=== PATIENT | male | born 1975 | race African-American/Black ===

== ENCOUNTER 2021-01-07 17:51 | Inpatient (IN) | payer SELFPAY ==
[~2021-01-07] VITALS: Ht 185.4 cm; Wt 125.0 kg
[2021-01-07] MEDS ORDERED: KETOROLAC 30 MG/ML 1ML VIAL IV ONE (18:45)
[2021-01-07] MEDS ORDERED: ONDANSETRON 4MG/2ML VIAL IV ONE ×2 (18:45→21:35)
[2021-01-07] MEDS ORDERED: NS 1,000 ML IV SCH (18:45)
[2021-01-07 19:13] LABS: BASO % 0.3 % (0.0-1.0); EOS % 0.3 % (0.0-3.0); HEMATOCRIT 43.9 % (42.0-52.0); HEMOGLOBIN 14.8 g/dl (13.5-17.5); LYMPH # 0.6 10^3/uL (1.5-5.0); LYMPH % 5.6 % (24.0-44.0); MEAN CORPUSCULAR HEMOGLOBIN 31.3 pg (27.0-33.0); MEAN CORPUSCULAR HGB CONC 33.7 g/dl (32.0-36.5); MEAN CORPUSCULAR VOLUME 92.8 fl (80.0-96.0); MONO # 0.7 10^3/uL (0.0-0.8); MONO % 6.4 % (2.0-8.0); NEUTROPHILS # 9.1 10^3/uL (1.5-8.5); NEUTROPHILS % 87.2 % (36.0-66.0); PLATELET COUNT, AUTOMATED 275 10^3/uL (150-450); RED BLOOD COUNT 4.73 10^6/uL (4.30-6.10); WHITE BLOOD COUNT 10.5 10^3/uL (4.0-10.0)
--- NOTE | 2021-01-07 19:29 | REP ---
INDICATION: r/o bowel obstruction COMPARISON: None. TECHNIQUE: Upright view of the chest with supine and upright views of the abdomen and pelvis. FINDINGS: Frontal upright view of the chest demonstrates subtle left basilar atelectasis without free air below the diaphragm to suspect pneumoperitoneum. Supine and upright views of the abdomen and pelvis demonstrate nonspecific bowel gas pattern without obstruction or perforation. No organomegaly. No abnormal calcifications. Skeletal structures normal for age. IMPRESSION: Nonspecific bowel gas pattern. Subtle left basilar atelectasis. <Electronically signed by Roberto Partida > 01/07/211924
--- NOTE | 2021-01-07 19:33 | REP ---
INDICATION: r/o bowel obstruction COMPARISON: None. TECHNIQUE: Lateral view of the chest (along with frontal view of the chest in the abdominal series) FINDINGS: The mediastinum and cardiac silhouette are within normal limits. The lung sommers demonstrate small amount of left lower lobe atelectasis. No effusion. No pneumothorax. Skeletal structures are intact. IMPRESSION: Trace left lower lobe atelectasis. <Electronically signed by Roberto Partida > 01/07/211928
[2021-01-07 19:56] LABS: ALBUMIN 3.3 GM/DL (3.2-5.2); ALT/SGPT 920 U/L (12-78); BILIRUBIN,DIRECT 4.5 MG/DL (0.0-0.2); BILIRUBIN,TOTAL 7.1 MG/DL (0.2-1.0); CPK CREATINE PHOSPHOKINASE 256 U/L (39-308); LIPASE 102 U/L (73-393)
--- NOTE | 2021-01-07 20:13 | REPVR ---
PROCEDURE INFORMATION: Exam: CT Abdomen And Pelvis Without Contrast Exam date and time: 01/07/2021 7:02 PM Age: 45 years old Clinical indication: Abdominal pain; Localized; Right upper quadrant (ruq); Additional info: Ruq pain R/O urolithiasis TECHNIQUE: Imaging protocol: Computed tomography of the abdomen and pelvis without contrast. Radiation optimization: All CT scans at this facility use at least one of these dose optimization techniques: automated exposure control; mA and/or kV adjustment per patient size (includes targeted exams where dose is matched to clinical indication); or iterative reconstruction. COMPARISON: No relevant prior studies available. FINDINGS: Lungs: Atelectasis is present in the dependent portions of the lungs. Liver: Noncontrast liver shows no obvious lesion. Gallbladder and bile ducts: Gallbladder is distended and contains small dependent stones. I cannot assess gallbladder wall thickening. Common bile duct is prominent in caliber measuring up to 10 mm proximally. Pancreas: Noncontrast pancreas shows no obvious mass or adjacent fluid. Spleen: Noncontrast spleen shows no obvious focal deformity. Adrenal glands: Adrenal glands are normal in appearance. Kidneys and ureters: Kidneys show no stone or hydronephrosis. Stomach and bowel: Limited evaluation without enteric or IV contrast. No evidence of small bowel obstruction. Terminal ileum has normal appearance. No evidence of acute diverticulitis. Postsurgical changes of gastric bypass procedure are present. Appendix: Normal caliber appendix is identified, with no adjacent inflammation. Intraperitoneal space: No pneumoperitoneum. Vasculature: No aortic aneurysm. Lymph nodes: No enlarged lymph nodes. Urinary bladder: Urinary bladder appears normal. Reproductive: No overt enlargement of the prostate gland. Bones/joints: Bony structures are normal except for lumbar spine degenerative disc changes. Soft tissues: Unremarkable. IMPRESSION: 1. Cholelithiasis and gallbladder distension. I cannot assess gallbladder wall thickness and HIDA scan or right upper quadrant sonography could be performed if there is concern for cholecystitis. Common bile duct proximally appears prominent but difficult to assess. 2. No evidence of urolithiasis Electronically signed by: Jesse James On 01/07/2021 20:13:06 PM
--- NOTE | 2021-01-07 20:36 | REP ---
INDICATION: ruq pain COMPARISON: None. TECHNIQUE: Real time gold scale ultrasound examination using curved array transducer. FINDINGS: Liver demonstrates mild fatty infiltration without focal hepatic lesion. Pancreas is incompletely evaluated due to interposed bowel gas. The gallbladder demonstrates layering sludge and gallstones without wall thickening or pericholecystic fluid. Common bile duct is dilated to 10.8 mm without obvious choledocholith. Right kidney is normal in reniform shape without hydronephrosis and measures 11.6 x 5.5 x 4.9 cm. No ascites in the visualized right upper quadrant. IMPRESSION: 1. Moderately prominent gallbladder with gallstones and layering sludge along with distended common bile duct raise the possibility of early acute cholecystitis and possible choledocholith. 2. Hepatosteatosis. <Electronically signed by Roberto Partida > 01/07/212031
[2021-01-07] MEDS ORDERED: LR 1,000 ML IV ONE (21:05)
--- NOTE | 2021-01-07 21:27 | IPNPDOC ---
Text Note Date of Service The patient was seen on 01/07/21. VS,Massimo, I+O VS, Massimo, I+O Laboratory Tests 01/07/21 18:54 Vital Signs Date Time Temp Pulse Resp B/P (MAP) Pulse Ox O2 Delivery O2 Flow Rate FiO2 01/07/21 21:13 98.9 72 16 165/83 (110) 100 Room Air KRIS MENDOZA MD Jan 07, 2021 21:27
[2021-01-07] MEDS ORDERED: HOME MED LIST COMPLETE! XX SCH (21:30)
[2021-01-07] MEDS: LR 1,000 ML IV SCH (21:30)
[2021-01-07] MEDS ORDERED: MORPHINE 4 MG/ML 1ML VIAL/SYRINGE (J2270) IV ONE (21:35)
[2021-01-07 22:02] LABS: HEPATITIS B SURFACE ANTIGEN NEGATIVE (NEGATIVE)
--- NOTE | 2021-01-07 22:08 | HPEPDOC ---
[facility] Medical History & Physical Date of Admission Jan 07, 2021 Date of Service: Jan 07, 2021 Attending Physician: KRIS MENDOZA MD History and Physical CHIEF COMPLAINT: Abdominal pain and vomiting HISTORY OF PRESENT ILLNESS: is a pleasant 45yo male with PMHx notable only for gastric bypass sx (2011) who presented to the [facility] ED on the evening of 01/07/21 via EMS c/o worsening abdominal pain and emesis. On the morning of 01/05, the patient woke up and had a meal replacement protein shake for breakfast, after which he subsequently developed abdominal pain. Initially, the pain began over the entire right side of his abdomen and radiated to his back. The pain steadily worsened over the next 48 hours, then this morning (01/07) he experienced 2 episodes of blood-tinged emesis. The patient specifically described the vomitus as being "white, cottage cheeselike" with streaks of blood. Patient then tried some davide adriana, but this brought no relief as he subsequently experienced 2 more episodes of emesis - -describing the vomitus this time as "more bloody then white." Around 3 PM this afternoon, the patient's abdominal pain had significantly increased in intensity to 10/10, and become more localized to the right upper quadrant. He described the pain at this point as being "cons trictive," in that lying completely flat caused him the least discomfort. He reports not having a bowel movement since Thursday (01/04), and has not been able to either burp or pass gas. He has diminished appetite and has not eaten anything of significance since Thursday, 01/04. He also reported accompanying bloating-like sensation of his upper chest, "as if there were bubbles," as well as shortness of breath with presyncopal sxs (lightheadedness & transient visual field disturbances). 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 After struggling to find a nearby hospital, he pulled into a shopping center lot and subsequently called EMS. On presentation in the ED, patient had a mild leukocytosis with absolute neutrophilia (WBC 10.5), significantly elevated transaminases (ALT 920, AST 622)/elevated alk phos (146)/direct hyperbilirubinemia (T bili 7.1, D bili 4.5). CT abdomen and pelvis showed cholelithiasis and gallbladder distention with difficulty assessing gallbladder wall thickness. On right upper quadrant ultrasound, gallbladder was described as mildly prominent with stones and layering sludge along with distended CBD with associated increased possibility of early acute cholecystitis and possible choledocholithiasis. Patient was also found to have a fatty liver. ED provider contacted the on-call gastroente rologist (Dr. Stockton) who recommended n.p.o. overnight in preparation for likely ERCP tomorrow, serial repeats of liver enzymes, hepatitis panel, and aggressive fluid hydration. REVIEW OF SYSTEMS: CONSTITUTIONAL: Reports subjective fever earlier today. Denies chills, night sweats, recent unintentional change in weight HEENT: Reports lightheadedness and transient visual disturbances earlier today accompanying shortness of breath (described as color flashes in his field of vision). CARDIOVASCULAR: Reports some bloating-like sensation of his upper chest but denies any sharp chest pain or palpitations currently. RESPIRATORY: Reports some transient shortness of breath earlier today but does not feel short of breath now. He also denies any pleuritic chest pain or cough. GASTROINTESTINAL: Reports significant abdominal pain over the past 3 days that is worsened today as described extensively in HPI. Also reports nausea and multiple episodes of emesis today as described in HPI with some accompanying hematemesis. Last bowel movement was 01/04, but denies any recent blood in stool. Denies any recent eructation or flatus. Reports diminished appetite and has not eaten anything since 01/04. GENITOURINARY: Reports dark-colored urine over the past few days. Denies dysuria or hematuria Musculoskeletal: Reports some flank/costo vertebral discomfort. Denies any low back pain. NEUROLOGICAL: Reports lightheadedness earlier today HEMATOLOGIC: Denies any recent easy bleeding or bruising LYMPHATIC: Denies any recent new lumps or bumps of his axilla, inguinal region, or neck, but does report a bump over his buttocks. 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 He is engaged and has 1 son. Patient currently smokes 2 to 3 cigars daily and has smoked for the past 3 years. He denies any chewing tobacco or cigarette use. Patient drinks alcohol occasionally on a social basis (estimates approximately 12 drinks per month). Patient denies any current or former illegal or IV drug use FAMILY HISTORY: Mother: Unspecified cancer / Father: ; hypertension ALLERGIES: Please see below. HOME MEDICATIONS: Please see below. PHYSICAL EXAMINATION: Vital Signs Date Time Temp Pulse Resp B/P (MAP) Pulse Ox O2 Delivery O2 Flow Rate FiO2 01/07/21 18:31 97.9 65 18 180/91 (120) 100 Room Air GENERAL APPEARANCE: lying completely flat in bed appearing in moderate discomfort. HEENT: Normocephalic, atraumatic. Mildly injected sclera with trace icterus. PERRLA. EOMI. Oral cavity: Mallampati 4. No pharyngeal erythema or exudate appreciated. Mildly dry mucous membranes. Neck: No lymphadenopathy appreciated. Trachea midline. CARDIOVASCULAR: Regular rate, regular rhythm. Normal S1 with a possible split S2 most prominent over parasternal fourth intercostal space. No significant murmurs or rubs are appreciated. LUNGS: Diminished tidal volume likely secondary to active discomfort with no adventitious breath sounds appreciated. Symmetric chest expansion. Breathing room air and speaking full sentences. ABDOMEN: Soft. Significant pain on palpation of the upper abdominal regions as well as the left lower quadrant, with diffuse tenderness in right lower quadrant and periumbilically. There is no rigidity but there is moderate guarding throughout. Hyperactive bowel sounds with occasional intermittent high-pitched tinkling sounds in the upper quadrants. Positive Cardenas sign and positive Carnett's sign. Difficult to assess for hepatosplenomegaly and palpable masses due to patient's discomfort. No CVA tenderness. There are some prominent unprofessional tattoos overlying the right side of his abdomen. EXTREMITIES: Bilateral lower extremities are free of pitting edema. His feet are quite cool to the touch bilaterally. 2+ radial, dorsalis pedis, and po sterior tibial pulses bilaterally. No signs of clubbing or cyanosis. NEUROLOGICAL: No gross focal neurologic deficits appreciated. Nondysarthric speech. PSYCHIATRIC: Pleasant mood and appropriate appearing affect. LABORATORY DATA:01/07/21 18:54 IMAGING: CT abdomen and pelvis without IV contrast, 01/07/2021 FINDINGS: Lungs: Atelectasis is present in the dependent portions of the lungs. Liver: Noncontrast liver shows no obvious lesion. Gallbladder and bile ducts: Gallbl adder is distended and contains small dependent stones. I cannot assess gallbladder wall thickening. Common bile duct is prominent in caliber measuring up to 10 mm proximally. Pancreas: Noncontrast pancreas shows no obvious mass or adjacent fluid. Spleen: Noncontrast spleen shows no obvious focal deformity. Adrenal glands: Adrenal glands are normal in appearance. Kidneys and ureters: Kidneys show no stone or hydronephrosis. Stomach and bowel: Limited evaluation without enteric or IV contrast. No evidence of small bowel obstruction. Terminal ileum has normal appearance. No evidence of acute diverticulitis. Postsurgical changes of gastric bypass procedure are present. Appendix: Normal caliber appendix is identified, with no adjacent inflammation. Intraperitoneal space: No pneumoperitoneum. Vasculature: No aortic aneurysm. Lymph nodes: No enlarged lymph nodes. Urinary bladder: Urinary bladder appears normal. Reproductive: No overt enlargement of the prostate gland. Bones/joints: Bony structures are normal except for lumbar spine degenerative disc changes. Soft tissues: Unremarkable. IMPRESSION: 1. Cholelithiasis and gallbladder distension. I cannot assess gallbladder wall thickness and HIDA scan or right upper quadrant sonography could be performed if there is concern for cholecystitis. Common bile duct proximally appears prominent but difficult to assess. 2. No evidence of urol ithiasis Gallbladder ultrasound, 01/07/2021FINDINGS:Liver demonstrates mild fatty infiltration without focal hepatic lesion. Pancreas is incompletely evaluated due to interposed bowel gas.The gallbladder demonstrates layering sludge and gallstones without wall thickening or pericholecystic fluid. Common bile duct is dilated to 10.8 mm without obvious choledocholith. Right kidney is normal in reniform shape without hydronephrosis and measures 11.6 x 5.5 x 4.9 cm. No ascites in the visualized right upper quadrant. IMPRESSION: 1. Moderately prominent gallbladder with gallstones and layering sludge along with distended common bile duct raise the possibility of early acute cholecystitis and possible choledocholith. 2. Hepatosteatosis. Abdominal x-ray, 01/07/2021 FINDINGS: Frontal upright view of the chest demonstrates subtle left basilar atelectasis without free air below the diaphrag m to suspect pneumoperitoneum. Supine and upright views of the abdomen and pelvis demonstrate nonspecific bowel gas pattern without obstruction or perforation. No organomegaly. No abnormal calcifications. Skeletal structures normal for age. IMPRESSION: Nonspecific bowel gas pattern. Subtle left basilar atelectasis. Portable chest x-ray, 01/07/2021 FINDINGS:The mediastinum and cardiac silho uette are within normal limits. The lung sommers demonstrate small amount of left lower lobe atelectasis. No effusion. No pneumothorax. Skeletal structures are intact. IMPRESSION: Trace left lower lobe atelectasis. MICROBIOLOGY: Please see below. ASSESSMENT & PLAN: This is a 45yo male s/p gastric bypass who presented to the ED on the evening of 01/07 with cc of abdominal pain worsening over the past 3 days. He had accompanying blood tinged emesis x4 on 01/07 with decreased appetite, no flatus or eructation. Initial labs showed mild leukocytosis with significantly elevated liver enzymes and direct hyperbilirubinemia. Imaging showed cholelithiasis with prominent gallbladder and distended CBD concerning for choledocholithiasis and early cholecystitis, as well as fatty liver. Patient made n.p.o. with aggressive IV fluid hydration, antibiotics, pain and nausea control, with plan for upcoming ERCP with gastroenterology on 01/08/2021. #Abdominal pain and hematemesis- likely 2/2 cholelithiasis with possibility for early cholecystitis and choledocholithiasis -Patient has had abdominal pain over the last 3 days which is worsened and is now most intense over the right upper quadrant. Experienced 4 episodes of blood-tinged emesis on 01/07 -Mild leukocytosis with significantly elevated liver enzymes and direct hyperbilirubinemia; imaging showed prominent gallbladder with gallstones, dilated CBD, and concerns for possible early acute cholecystitis and choledocholithiasis -tBili 7.1, dBili 4.5; ALT 920, AST 622, GGT 319, Alk Phos 146; Coags ordered; PLT 275; Lipase 102 -Trending CMP at midnight and 6 AM -ED provider contacted gastroenterology (Dr. Stockton) who recommended aggressive IV fluid hydration and n.p.o. diet in preparation for likely ERCP on 01/08 -Official gastroenterology consultation has been placed -Aggressive IV fluid hydration in the form of lactated Ringer's (rate 250 cc/hour) -Zosyn initiated for antimicrobial coverage -As needed morphine and Zofran ordered (patient's QTc was in low-to-mid 400s) -Calculated R Factor: 9.5, which correlates to a hepatocellular pattern; imaging suggests cholestatic pattern -Pt also has hepatic steatosis per imaging, which would correlate to hepatocellular -Hepatitis panel, anti-smooth muscle Ab, and anti-mitoch Ab ordered #Direct hyperbilirubinemia -most likely secondary to cholelithiasis with possible choledocholithiasis and early -Initial total bilirubin 7.1, direct bilirubin 4.5 -Trending CMP at midnight and 6 AM #Transaminitis -most likely secondary to acute cholestatic imaging findings as well as fatty liver -ALT 920, AST 622 -Repeat CMP at midnight and 6 AM #Possible acute renal failure -Initial serum creatinine of 1.4 -Initial calculated GFR greater than 60% -Patient is not from the area and therefore no previous measurements are available to assess for baseline creatinine -Repeat CMP's have been ordered in the setting of acute cholestatic pathology -Patient receiving aggressive IV fluid hydration in the form of LR #Recent hematemesis -Patient reported 4 episodes earlier today of blood-tinged emesis -As needed Zofran has been ordered -Of note, patient's been hemodynamically stable with no tachycardia, Hgb 14.8 #Mild leukocytosis with absolute neutrophilia -Initial WBC 10.5 with elevated absolute neutrophil number -Initial lactic 1.1; 2 initial blood cultures taken; initial UA unremarkable for UTI #DVT prophylaxis: Teds and sequentials have been ordered in setting of upcoming ERCP CODE STATUS: Full code Social: Patient's ana (Emily Davis, ) is point of contact Disposition: Admit to medical surgical floor with n.p.o. status for likely upcoming ERCP on 01/08; pending clinical improvement Home Medications No Active Prescriptions or Reported Meds Allergies Coded Allergies: No Known Allergies (Verified Allergy, Unknown, 01/07/21) Attending Note Attending Note TIME OF SERVICE 11:30PM Mr. Grubbs is a 45 yr old M admitted for early acute cholecystitis w choledocholithiasis. - he is NPO w IVF pending ERCP in the morning that will be done by rest per 's H&P SHYLA LEVINEOCitlaly Jan 07, 2021 22:08 KRIS MENDOZA MD Jan 08, 2021 00:22
[2021-01-07 22:27] LABS: RSV AMPLIFICATION NEGATIVE (NEGATIVE)
[2021-01-07 22:29] LABS: HEPATITIS B CORE ANTIBODY IGM NEGATIVE (NEGATIVE); HEPATITIS C VIRUS ABY INDEX < 0.0 INDEX (<0.8)
[2021-01-07] MEDS ORDERED: MORPHINE 4 MG/ML 1ML VIAL/SYRINGE (J2270) IV PRN (23:40)
[2021-01-08] VITALS (10 sets, daily range): BP systolic 138–160; BP diastolic 78–88
[2021-01-08] MEDS ORDERED: fentaNYL 100 MCG/2 ML INJECTION (J3010) IV ONE (00:15)
[2021-01-08] MEDS ORDERED: ONDANSETRON 4MG/2ML VIAL IV PRN ×2 (01:30→15:15)
[2021-01-08] MEDS ORDERED: MORPHINE 10 MG/ML 1ML VIAL (J2270) IV PRN (01:35)
[2021-01-08] MEDS: PIPERACILLIN/TAZOBACTAM SOD 3.375 GM in D5W MINI-BAG PLUS 50 ML IV SCH ×4 (01:54→18:13)
[2021-01-08] MEDS: LR 1,000 ML IV SCH ×4 (03:50→23:32)
[2021-01-08 05:37] LABS: BASO % 0.5 % (0.0-1.0); EOS # 0.2 10^3/uL (0.0-0.5); EOS % 1.9 % (0.0-3.0); HEMATOCRIT 41.4 % (42.0-52.0); LYMPH # 1.5 10^3/uL (1.5-5.0); LYMPH % 18.7 % (24.0-44.0); MEAN CORPUSCULAR HEMOGLOBIN 31.5 pg (27.0-33.0); MEAN CORPUSCULAR HGB CONC 33.8 g/dl (32.0-36.5); MONO # 0.8 10^3/uL (0.0-0.8); MONO % 10.3 % (2.0-8.0); NEUTROPHILS # 5.3 10^3/uL (1.5-8.5); NEUTROPHILS % 68.3 % (36.0-66.0); PLATELET COUNT, AUTOMATED 241 10^3/uL (150-450); RED BLOOD COUNT 4.45 10^6/uL (4.30-6.10); WHITE BLOOD COUNT 7.8 10^3/uL (4.0-10.0)
[2021-01-08 06:04] LABS: ALBUMIN 2.8 GM/DL (3.2-5.2); ALT/SGPT 687 U/L (12-78); BILIRUBIN,TOTAL 7.4 MG/DL (0.2-1.0); BLOOD UREA NITROGEN 6 MG/DL (7-18); CALCIUM LEVEL 8.3 MG/DL (8.5-10.1); CARBON DIOXIDE LEVEL 31 MEQ/L (21-32); CHLORIDE LEVEL 109 MEQ/L (98-107); CREATININE FOR GFR 1.21 MG/DL (0.70-1.30); GLOMERULAR FILTRATION RATE > 60.0 (>60); GLUCOSE, FASTING 94 MG/DL (70-100); MAGNESIUM LEVEL 1.8 MG/DL (1.8-2.4); POTASSIUM SERUM 3.9 MEQ/L (3.5-5.1); SODIUM LEVEL 142 MEQ/L (136-145); TOTAL PROTEIN 5.7 GM/DL (6.4-8.2)
[2021-01-08] MEDS ORDERED: HYDROMORPHONE HCL 0.5 MG/ 0.5 ML SYRINGE (J1170 PER 1) IV ONE (08:35)
[2021-01-08] MEDS ORDERED: METOCLOPRAMIDE INJ 10MG/2ML VIAL (J2765 PER 1) IV ONE (08:35)
[2021-01-08 10:57] LABS: ALBUMIN 2.9 GM/DL (3.2-5.2); ALT/SGPT 654 U/L (12-78); BILIRUBIN,TOTAL 8.1 MG/DL (0.2-1.0); BLOOD UREA NITROGEN 7 MG/DL (7-18); CALCIUM LEVEL 8.7 MG/DL (8.5-10.1); CARBON DIOXIDE LEVEL 29 MEQ/L (21-32); CHLORIDE LEVEL 107 MEQ/L (98-107); CREATININE FOR GFR 1.35 MG/DL (0.70-1.30); GLOMERULAR FILTRATION RATE > 60.0 (>60); GLUCOSE, FASTING 88 MG/DL (70-100); POTASSIUM SERUM 3.9 MEQ/L (3.5-5.1); SODIUM LEVEL 141 MEQ/L (136-145)
[2021-01-08] MEDS ORDERED: dexameTHASONE 4 MG/ML 1ML VIAL (J1100 PER 1MG) As Ordered ONE (13:02)
[2021-01-08] MEDS ORDERED: fentaNYL 100 MCG/2 ML INJECTION (J3010) As Ordered ONE (13:02)
[2021-01-08] MEDS ORDERED: ROCURONIUM BROMIDE 50 MG/5 ML VIAL As Ordered ONE (13:02)
[2021-01-08] MEDS ORDERED: LIDOCAINE 2% 100MG/5ML SDV (FOR ANES.) As Ordered ONE (13:02)
[2021-01-08] MEDS ORDERED: MIDAZOLAM INJ 2MG/2ML VIAL (J2250 PER 1MG) As Ordered ONE (13:02)
[2021-01-08] MEDS ORDERED: propofoL 200 MG/20 ML VIAL As Ordered ONE ×2 (13:02→13:58)
[2021-01-08] MEDS ORDERED: ONDANSETRON 4MG/2ML VIAL As Ordered ONE (13:03)
[2021-01-08] MEDS ORDERED: ISOVUE-300 61% 50ML VIAL As Ordered ONE (13:31)
--- NOTE | 2021-01-08 13:44 | CR.PDOC ---
General Date of Consultation: Jan 08, 2021 Referring Provider: CONRAD ANDRADE MD Attending Physician: SARAH ZAVALA MD Consultation Referring physician / PCP : Polly ([place]). Reason for consult: Anemia and drop in hmeoglobin HPI: 45 year old male patient with prior gastric sleeve surgery in 2011 in [place], ( patient is specifically asked about the type of gastric surgery and he denies Naye-En- Y gastric bypass), was admitted to hospital for right sided abdominal pain associated with nausea and vomiting and some blood in vomiting. Patient was noted to have abnormal liver tests and GI was consulted for the same. Patient reports that the symptoms started on Thursday ( 4 days ago) with acute onset upper abdominal pain, that radiating to back and initially mild but rapidly worsened to 10/10 intensity and unable to lay flat on the bed. The pain is associated with nausea and vomiting total 4 episodes with last episode of vomiting yesterday with some blood in vomit. Patient desnies any recent NSAID use, and no black stools and his last bowel movement was on Thursday. 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 Pertinent negative GI symptoms: Patient denies diarrhea, loss of appetite, early satiety or unintentional weight loss, hematemesis, melena or hematochezia. Review of Systems: GI: as stated above CVS: No chest pain, No palpitations, No leg swelling RS: No Shortness of breath, No Wheezing LOCK SETTER: No loss of consciousness, No focal motor weakness., Hematology: No easy bruising, No gum bleeding, Musculoskeletal: No joint pain, ambulating well. : No blood in urine, No burning sensation of the urine ENT: No ear discharge/ pain, No dysphagia. Eyes: No photophobia. Skin: No rash Home medications: reviewed. No Plavix and No anticoagulants Medical h/o: As above. Surgical h/o: As above.. Social h/o: Smokes cigars and social alcohol use and denies any recent binge drinking. Denies IVDA/ drugs. Family h/o of GI cancers - None Prior Endoscopies: None in [facility]. No prior colonoscopy. Prior GI evaluation: None in [facility] Exam: Vitals: reviewed General: Alert and oriented x 3, Mild to moderate distress from epigastric pain. HEENT: No pallor, no icterus. Normal oropharynx, NO cervical lymphadenopathy. Chest: symmetric with bilateral air entry, CVS: S1, S2 heard, Abdomen: non-distended, soft, tenderness on deep palpation on the right side upper and lower quadrant. no rigidity or guarding, no palpable masses, normal bowel sounds heard. Rectal exam: Patient refused / Deferred at this time in view of scheduled colonoscopy. Extremities: pulses palpable, no pedal edema, LOCK SETTER: no focal motor or sensory deficits. Moves all extremities Skin: no rash. Labs: reviewed. Imaging: none / reviewed. Impression: -- Acute onset upper abdominal pain with jaundice and vomiting of blood after few episodes of retching and work up showing cholestasis, dilated CBD and prior gastric sleeve surgery DDxCholedocholithiasis without evidence of cholangitis at this time. Hematemsis likely from gastritis vs MWT.. Recommendations: -- Patient educated about the prior test results and all questions answered. . -- NPO for now. -- Continue IV hydration prefer ringers lactate. -- Will schedule for ERCP today. Patient educated about the procedure, indications, risks (including but not limited to pancreatitis and its complications, bleeding, infection, perforation, anesthesia risks, including ), benefits and all alternatives including conservative measures without intervention. Patient verbalized understanding and consented for the procedure(s). -- Please follow operative note for post procedure recommendations. -- Plan of care educated to patient and patient verbalized understanding and agreed. All questions answered. -- Recommendations communicated to primary team. Patient to follow with PCP upon discharge for routine medical care. Vital Signs/I&O Vital Signs Date Time Temp Pulse Resp B/P (MAP) Pulse Ox O2 Delivery O2 Flow Rate FiO2 01/08/21 09:30 18 01/08/21 08:53 Room Air 01/08/21 06:00 98.6 59 138/78 (98) 95 I&O- Last 24 Hours up to 6 AM 01/08/21 06:00 Intake Total 3050 ml Balance 3050 ml Laboratory Data Labs 24H Laboratory Tests 2 01/07/21 18:54: Immature Granulocyte % (Auto) 0.2, Neutrophils (%) (Auto) 87.2H, Lymphocytes (%) (Auto) 5.6L, Monocytes (%) (Auto) 6.4, Eosinophils (%) (Auto) 0.3, Basophils (%) (Auto) 0.3, Neutrophils # (Auto) 9.1H, Lymphocytes # (Auto) 0.6L, Monocytes # (Auto) 0.7, Eosinophils # (Auto) 0.0, Basophils # (Auto) 0.0, Nucleated Red Blood Cells % (auto) 0.0, Total Bilirubin 7.1H, Direct Bilirubin 4.5H, Gamma Glutamyl Transferase 319H, Aspartate Amino Transf (AST/SGOT) 622H, Alanine Aminotransferase (ALT/SGPT) 920H, Alkaline Phosphatase 146H, Total Creatine Kinase 256, Total Protein 7.0, Albumin 3.3, Albumin/Globulin Ratio 0.9, Lipase 102, Hepatitis A IgM Antibody NEGATIVE, Hepatitis B Surface Antigen NEGATIVE, Hepatitis B Core IgM Antibody NEGATIVE, Hepatitis C Antibody Index < 0.0 01/07/21 19:01: POC Glucose (Misc Panel) 117H, POC Sodium (Misc Panel) 139, POC Potassium (Misc Panel) 4.0, POC Chloride (Misc Panel) 102, POC Total CO2 (Misc Panel) 27.0, POC Blood Urea Nitrogen (Misc Panel 5L, POC Ionized Calcium (Misc Panel) 4.3L, POC Creatinine (Misc Panel) 1.4H, POC Hematocrit (Misc Panel) 48.0 01/07/21 20:29: Urine Color ALFONSO, Urine Appearance CLEAR, Urine pH 6.0, Urine Specific [place] 1.026, Urine Protein 1+H, Urine Glucose (UA) NEGATIVE, Urine Ketones TRACEH, Urine Blood NEGATIVE, Urine Nitrite NEGATIVE, Urine Bilirubin 2+H, Urine Urobilinogen 4.0H, Urine Leukocyte Esterase NEGATIVE, Urine WBC (Auto) 1, Urine RBC (Auto) 3, Urine Hyaline Casts (Auto) 0, Urine Bacteria (Auto) NEGATIVE, Urine Squamous Epithelial Cells 0, Urine Mucus (Auto) SMALL, Urine Sperm (Auto) 01/07/21 21:42: Coronavirus (COVID-19)(PCR) NEGATIVE, Influenza Type A (RT-PCR) NEGATIVE, Influenza Type B (RT-PCR) NEGATIVE, Respiratory Syncytial Virus (PCR) NEGATIVE 01/07/21 23:58: Lactic Acid Level 1.1 01/08/21 05:27: Immature Granulocyte % (Auto) 0.3, Neutrophils (%) (Auto) 68.3H, Lymphocytes (%) (Auto) 18.7L, Monocytes (%) (Auto) 10.3H, Eosinophils (%) (Auto) 1.9, Basophils (%) (Auto) 0.5, Neutrophils # (Auto) 5.3, Lymphocytes # (Auto) 1.5, Monocytes # (Auto) 0.8, Eosinophils # (Auto) 0.2, Basophils # (Auto) 0.0, Nucleated Red Blood Cells % (auto) 0.0, Anion Gap 2L, Glomerular Filtration Rate > 60.0, Calcium Level 8.3L, Magnesium Level 1.8, Total Bilirubin 7.4H, Aspartate Amino Transf (AST/SGOT) 328H, Alanine Aminotransferase (ALT/SGPT) 687H, Alkaline Phosphatase 123H, Lactate Dehydrogenase 262H, Total Protein 5.7L, Albumin 2.8L, Albumin/Globulin Ratio 1.0 01/08/21 10:12: Anion Gap 5L, Glomerular Filtration Rate > 60.0, Calcium Level 8.7, Total Bilirubin 8.1H, Aspartate Amino Transf (AST/SGOT) 266H, Alanine Aminotransferase (ALT/SGPT) 654H, Alkaline Phosphatase 128H, Total Protein 6.0L, Albumin 2.9L, Albumin/Globulin Ratio 0.9 CBC/BMP Laboratory Tests 01/07/21 18:54 01/08/21 05:27 01/08/21 10:12 Allergies Coded Allergies: No Known Allergies (Verified Allergy, Unknown, 01/07/21) Home Medications No Active Prescriptions or Reported Meds SARAH ZAVALA MD Jan 08, 2021 13:44
[2021-01-08] MEDS ORDERED: LABETALOL 100MG/20ML VIAL As Ordered ONE (14:06)
[2021-01-08] MEDS ORDERED: KETOROLAC 60MG 2ML VIAL As Ordered ONE (14:37)
[2021-01-08] MEDS ORDERED: SUGAMMADEX SODIUM 500 MG/5 ML VIAL (BRIDION) As Ordered ONE (14:37)
[2021-01-08] MEDS ORDERED: METOCLOPRAMIDE INJ 10MG/2ML VIAL (J2765 PER 1) As Ordered ONE (14:53)
--- NOTE | 2021-01-08 14:55 | ROOR ---
Patient Name: Luisito Grubbs Procedure Date: 01/08/2021 1:49 PM Date of : 1975 Age: 45 Room: Main OR Gender: Male Note Status: Finalized Procedure: ERCP Indications: Common bile duct stone(s), Evaluation and possible treatment of bile duct stone(s), Jaundice, Elevated liver enzymes Providers: Erwin Stockton MD Referring MD: 2. Inpatient 2. Inpatient, 1. NO/Unknown PCP 1. NO/Unknown PCP, Admin. Requesting Provider: Medicines: Monitored Anesthesia Care Complications: No immediate complications. Procedure: Pre-Anesthesia Assessment: - Prior to the procedure, a History and Physical was performed, and patient medications and allergies were reviewed. The patient is competent. The risks and benefits of the procedure and the sedation options and risks were discussed with the patient. All questions were answered and informed consent was obtained. Patient identification and proposed procedure were verified by the physician, the nurse and the anesthesiologist in the procedure room. Mental Status Examination: alert and oriented. Airway Examination: normal oropharyngeal airway and neck mobility. Respiratory Examination: clear to auscultation. CV Examination: normal. Prophylactic Antibiotics: The patient does not require prophylactic antibiotics. Prior Anticoagulants: The patient has taken no previous anticoagulant or antiplatelet agents except for aspirin. ASA Grade Assessment: II - A patient with mild systemic disease. After reviewing the risks and benefits, the patient was deemed in satisfactory condition to undergo the procedure. The anesthesia plan was to use general anesthesia. Immediately prior to administration of medications, the patient was re-assessed for adequacy to receive sedatives. The heart rate, respiratory rate, oxygen saturations, blood pressure, adequacy of pulmonary ventilation, and response to care were monitored throughout the procedure. The physical status of the patient was re-assessed after the procedure. The Endoscope was introduced through the mouth, and advanced to the duodenum and used to locate the major papilla. The Duodenoscope was introduced through the mouth, and advanced to the duodenum and used to inject contrast into the bile duct. The ERCP was accomplished without difficulty. The patient tolerated the procedure well. Findings: The information systems operator film was normal. The esophagus was successfully intubated under direct vision. The scope was advanced from the mouth to the duodenum. The pharynx, larynx and associated structures, as well as the upper GI tract, were normal. The major papilla was bulging. A 0.035 inch x 260 cm straight Hydra Jagwire was passed into the biliary tree. The short-nosed traction sphincterotome was passed over the guidewire and the bile duct was then deeply cannulated. Contrast was injected. I personally interpreted the bile duct images. Ductal flow of contrast was adequate. Image quality was adequate. Contrast extended to the entire biliary tree. The middle third of the main bile duct and upper third of the main bile duct were diffusely dilated, with a stone causing an obstruction. The largest diameter was 12 mm. The lower third of the main bile duct contained filling defect(s) thought to be a stone and sludge. Biliary sphincterotomy was made with a monofilament traction (standard) sphincterotome using ERBE electrocautery. The sphincterotomy oozed blood. The biliary tree was swept with a 12 mm balloon starting at the bifurcation. Sludge was swept from the duct. All stones were removed. Occlusion cholangiogram at the end of the procedure did not show any residual filling defects. Pancreatic duct was neither cannulated nor opacified. Impression: - The major papilla appeared to be bulging. - A filling defect consistent with a stone and sludge was seen on the cholangiogram. - The upper third of the main bile duct and middle third of the main bile duct were dilated, with a stone causing an obstruction. - Choledocholithiasis was found. Complete removal was accomplished by biliary sphincterotomy and balloon extraction. - A biliary sphincterotomy was performed. - The biliary tree was swept. Recommendation: - The patient will be observed post-procedure, until all discharge criteria are met. - Patient has a contact number available for emergencies. The signs and symptoms of potential delayed complications were discussed with the patient. Return to normal activities tomorrow. Written discharge instructions were provided to the patient. - Avoid aspirin and nonsteroidal anti-inflammatory medicines for 1 week. - Continue present medications. - Clear liquid diet today, then advance as tolerated to high fiber diet and low fat diet. - Surgical consultation for consideration of cholecystectomy at the next available appointment. - Refer to a surgeon today. - Telephone GI clinic if symptomatic. - Return to primary care physician. Procedure Code(s): --- Professional --- 52264, Endoscopic retrograde cholangiopancreatography (ERCP); with removal of calculi/debris from biliary/pancreatic duct(s) 20422, Endoscopic retrograde cholangiopancreatography (ERCP); with sphincterotomy/papillotomy 78329, 26, Endoscopic catheterization of the biliary ductal system, radiological supervision and interpretation Diagnosis Code(s): --- Professional --- K80.51, Calculus of bile duct without cholangitis or cholecystitis with obstruction R17, Unspecified jaundice R74.8, Abnormal levels of other serum enzymes K83.8, Other specified diseases of biliary tract R93.2, Abnormal findings on diagnostic imaging of liver and biliary tract CPT copyright 2019 [employer]. All rights reserved. The codes documented in this report are preliminary and upon academic advisor review may be revised to meet current compliance requirements. Erwin Stockton MD Erwin Stockton MD 01/08/2021 2:54:58 PM Electronically signed by Erwin Stockton MD Number of Addenda: 0 Note Initiated On: 01/08/2021 1:49 PM Estimated Blood Loss: Estimated blood loss was minimal.
--- NOTE | 2021-01-08 15:08 | REP ---
INDICATION: CHOLELITHIASIS. COMPARISON: None. TECHNIQUE: 38.2 seconds of fluoroscopy time was provided. 56 spot views were obtained. FINDINGS: Varying degrees of contrast opacification of the biliary system is noted. IMPRESSION: As above <Electronically signed by Kofi Yeung > 01/08/21 [id number]
--- NOTE | 2021-01-08 15:11 | IPNPDOC ---
Date Seen The patient was seen on 01/08/21. Progress Note addendum to progress note cholelithiasis/choledocholithiasis: s/p ERCP per Dr. Stockton, GI, recommend lap ulices due to high risk of recurrent choledocholithiasis. stent was not placed. Surgery Dr. Franz consulted for laparoscopic cholecystectomy prior to hospital discharge. pt does not live here, and will return to [place] on discharge. VS, I&O, 24H, Fishbone Vital Signs/I&O Vital Signs Date Time Temp Pulse Resp B/P (MAP) Pulse Ox O2 Delivery O2 Flow Rate FiO2 01/08/21 14:57 97.9 75 16 167/87 (113) 98 Room Air I&O- Last 24 Hours up to 6 AM 01/08/21 06:00 Intake Total 3050 ml Balance 3050 ml Laboratory Data 24H LABS Laboratory Tests 2 01/07/21 18:54: Immature Granulocyte % (Auto) 0.2, Neutrophils (%) (Auto) 87.2H, Lymphocytes (%) (Auto) 5.6L, Monocytes (%) (Auto) 6.4, Eosinophils (%) (Auto) 0.3, Basophils (%) (Auto) 0.3, Neutrophils # (Auto) 9.1H, Lymphocytes # (Auto) 0.6L, Monocytes # (Auto) 0.7, Eosinophils # (Auto) 0.0, Basophils # (Auto) 0.0, Nucleated Red Blood Cells % (auto) 0.0, Total Bilirubin 7.1H, Direct Bilirubin 4.5H, Gamma Glutamyl Transferase 319H, Aspartate Amino Transf (AST/SGOT) 622H, Alanine Jessica otransferase (ALT/SGPT) 920H, Alkaline Phosphatase 146H, Total Creatine Kinase 256, Total Protein 7.0, Albumin 3.3, Albumin/Globulin Ratio 0.9, Lipase 102, Hepatitis A IgM Antibody NEGATIVE, Hepatitis B Surface Antigen NEGATIVE, Hepatitis B Core IgM Antibody NEGATIVE, Hepatitis C Antibody Index < 0.0 01/07/21 19:01: POC Glucose (Misc Panel) 117H, POC Sodium (Misc Panel) 139, POC Potassium (Misc Panel) 4.0, POC Chloride (Misc Panel) 102, POC Total CO2 (Misc Panel) 27.0, POC Blood Urea Nitrogen (Misc Panel 5L, POC Ionized Calcium (Misc Panel) 4.3L, POC Creatinine (Misc Panel) 1.4H, POC Hematocrit (Misc Panel) 48.0 01/07/21 20:29: Urine Color ALFONSO, Urine Appearance CLEAR, Urine pH 6.0, Urine Specific [place] 1.026, Urine Protein 1+H, Urine Glucose (UA) NEGATIVE, Urine Ketones TRACEH, Urine Blood NEGATIVE, Urine Nitrite NEGATIVE, Urine Bilirubin 2+H, Urine Urobilinogen 4.0H, Urine Leukocyte Esterase NEGATIVE, Urine WBC (Auto) 1, Urine RBC (Auto) 3, Urine Hyaline Casts (Auto) 0, Urine Bacteria (Auto) NEGATIVE, Urine Squamous Epithelial Cells 0, Urine Mucus (Auto) SMALL, Urine Sperm (Auto) 01/07/21 21:42: Coronavirus (COVID-19)(PCR) NEGATIVE, Influenza Type A (RT-PCR) NEGATIVE, Influenza Type B (RT-PCR) NEGATIVE, Respiratory Syncytial Virus (PCR) NEGATIVE 01/07/21 23:58: Lactic Acid Level 1.1 01/08/21 05:27: Immature Granulocyte % (Auto) 0.3, Neutrophils (%) (Auto) 68.3H, Lymphocytes (%) (Auto) 18.7L, Monocytes (%) (Auto) 10.3H, Eosinophils (%) (Auto) 1.9, Basophils (%) (Auto) 0.5, Neutrophils # (Auto) 5.3, Lymphocytes # (Auto) 1.5, Monocytes # (Auto) 0.8, Eosinophils # (Auto) 0.2, Basophils # (Auto) 0.0, Nucleated Red Blood Cells % (auto) 0.0, Anion Gap 2L, Glomerular Filtration Rate > 60.0, Calcium Level 8.3L, Magnesium Level 1.8, Total Bilirubin 7.4H, Aspartate Amino Transf (AST/SGOT) 328H, Alanine Aminotransferase (ALT/SGPT) 687H, Alkaline Phosphatase 123H, Lactate Dehydrogenase 262H, Total Protein 5.7L, Albumin 2.8L, Albumin/Globulin Ratio 1.0 01/08/21 10:12: Anion Gap 5L, Glomerular Filtration Rate > 60.0, Calcium Level 8.7, Total Bilirubin 8.1H, Aspartate Amino Transf (AST/SGOT) 266H, Alanine Aminotransferase (ALT/SGPT) 654H, Alkaline Phosphatase 128H, Total Protein 6.0L, Albumin 2.9L, Albumin/Globulin Ratio 0.9 CBC/BMP Laboratory Tests 01/07/21 18:54 01/08/21 05:27 01/08/21 10:12 CONRAD ANDRADE MD Jan 08, 2021 15:11
[2021-01-08] MEDS ORDERED: oxyCODONE 5MG TAB PO PRN (15:15)
[2021-01-08] MEDS ORDERED: fentaNYL 100 MCG/2 ML INJECTION (J3010) IV PRN (15:15)
[2021-01-08] MEDS ORDERED: HYDROMORPHONE HCL 0.5 MG/ 0.5 ML SYRINGE (J1170 PER 1) IV PRN (15:15)
[2021-01-08] MEDS ORDERED: LR 1,000 ML IV SCH (15:15)
[2021-01-08] MEDS ORDERED: METOCLOPRAMIDE INJ 10MG/2ML VIAL (J2765 PER 1) IV PRN (15:15)
--- NOTE | 2021-01-08 16:40 | IPN ---
PROGRESS NOTE DATE: 01/08/2021 SUBJECTIVE: Patient complains of headache this morning, diffuse, without changes in vision, fever, chills or neck rigidity. He also complains of abdominal pain on the right side with nausea and vomiting and hematemesis. No bright red blood per rectum, melena or black tarry stools. No nausea. OBJECTIVE: VITAL SIGNS: Temperature 98.8, pulse 63, respiratory rate 16, blood pressure 160/87, 99% on room air. GENERAL: Patient is awake, alert, oriented to person, place and time. HEENT: Slightly icteric. No jaundice. No jugular venous distention (JVD) or thyromegaly. He has dry mucous membranes. LUNGS: Clear to auscultation. No wheezing, rales or rhonchi. HEART: S1, S2. Sinus rhythm. ABDOMEN: Soft. Pain in the periumbilical right upper quadrant. Hyperactive bowel sounds. No rebound or guarding. EXTREMITIES: No cyanosis, clubbing or pitting edema. LABORATORY DATA/IMAGING STUDIES: Have been reviewed. Notable for acute kidney injury, 1.35, elevated bilirubin of 8.1 and transaminitis. ASSESSMENT: This is a 45-year-old -Italian male with history of gastric bypass surgery, obesity, body mass index (BMI) of 36, presents with complaints of upper abdominal pain and hematemesis, found to have obstructive jaundice with cholelithiasis and distended common bile duct with associated choledocholithiasis with history of fatty liver. IMPRESSION: 1. Choledocholithiasis with obstructive jaundice. 2. History of prior gastric sweep surgery. 3. Hematemesis, possible gastritis versus Manjula-Oliver tear. 4. Headache. 5. Fatty liver. 6. Obesity, body mass index (BMI) 36.4. 7. Acute kidney injury. PLAN: Patient has been kept nothing by mouth, on intravenous (IV) fluids, for endoscopic retrograde cholangiopancreatography (ERCP) due to choledocholithiasis by Dr. Stockton, lay out maker. Hyperglycemic protocol. As needed pain medications, antiemetics. MTDD
[2021-01-08 20:39] LABS: HEMATOCRIT 45.6 % (42.0-52.0); HEMOGLOBIN 15.3 g/dl (13.5-17.5); MEAN CORPUSCULAR HEMOGLOBIN 31.7 pg (27.0-33.0); MEAN CORPUSCULAR HGB CONC 33.6 g/dl (32.0-36.5); MEAN CORPUSCULAR VOLUME 94.4 fl (80.0-96.0); PLATELET COUNT, AUTOMATED 293 10^3/uL (150-450); RED BLOOD COUNT 4.83 10^6/uL (4.30-6.10); WHITE BLOOD COUNT 8.8 10^3/uL (4.0-10.0)
[2021-01-08 21:05] LABS: ALBUMIN 3.1 GM/DL (3.2-5.2); BILIRUBIN,DIRECT 6.2 MG/DL (0.0-0.2); BILIRUBIN,TOTAL 7.8 MG/DL (0.2-1.0); TOTAL PROTEIN 6.6 GM/DL (6.4-8.2)
--- NOTE | 2021-01-08 21:37 | ECGEPIP ---
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
[2021-01-09] MEDS: PIPERACILLIN/TAZOBACTAM SOD 3.375 GM in D5W MINI-BAG PLUS 50 ML IV SCH ×4 (01:18→18:44)
[2021-01-09 04:40] VITALS: BP 146/81
[2021-01-09] MEDS: LR 1,000 ML IV SCH ×7 (05:16→22:17)
[2021-01-09 05:56] LABS: HEMOGLOBIN 13.5 g/dl (13.5-17.5); MEAN CORPUSCULAR HEMOGLOBIN 31.4 pg (27.0-33.0); MEAN CORPUSCULAR HGB CONC 33.8 g/dl (32.0-36.5); PLATELET COUNT, AUTOMATED 248 10^3/uL (150-450); WHITE BLOOD COUNT 9.6 10^3/uL (4.0-10.0)
[2021-01-09 06:30] LABS: ALBUMIN 2.6 GM/DL (3.2-5.2); BILIRUBIN,DIRECT 2.4 MG/DL (0.0-0.2); BILIRUBIN,TOTAL 3.7 MG/DL (0.2-1.0); TOTAL PROTEIN 5.7 GM/DL (6.4-8.2)
[2021-01-09] MEDS ORDERED: CHLORASEPTIC SPRAY MT PRN (07:35)
[2021-01-09] MEDS ORDERED: CHLORASEPTIC SPRAY MT ONE (09:00)
--- NOTE | 2021-01-09 11:13 | IPNPDOC ---
Date Seen The patient was seen on 01/09/21. Progress Note SUBJECTIVE: s/p ERCP. pain 3/10 on pain scale not wanting pain meds. no n/v/f./chills/abd pain. OBJECTIVE: VITAL SIGNS: see below GENERAL:no distress supine in bed. HEENT: moist mm. decreased icterus and jaundice. no jvd LUNGS: Clear to auscultation. No wheezing, rales or rhonchi. HEART: S1, S2. Sinus rhythm. ABDOMEN: Soft. Pain in the periumbilical right upper quadrant. + bowel sounds. No rebound or guarding. EXTREMITIES: No cyanosis, clubbing or pitting edema. LABORATORY DATA/IMAGING STUDIES: Have been reviewed. Notable for acute kidney injury, 1.35, elevated bilirubin of 8.1 and transaminitis. ASSESSMENT: This is a 45-year-old -Belgian male with history of gastric bypass surgery, obesity, body mass index (BMI) of 36, presents with complaints of upper abdominal pain and hematemesis, found to have obstructive jaundice with cholelithiasis and distended common bile duct with associated choledocholithiasis with history of fatty liver. IMPRESSION: 1. Choledocholithiasis with obstructive jaundice. 2. History of prior gastric sweep surgery. 3. Hematemesis, possible gastritis versus Manjula-Oliver tear. 4. Headache. 5. Fatty liver. 6. Obesity, body mass index (BMI) 36.4. 7. Acute kidney injury. 8. Cholelithiasis PLAN: GI recommends lap ulices prior to discharge due to multiple gallstones and increased risk of choledocholithiasis. Gen Surgery consulted for lap ulices on . VS, I&O, 24H, [place] Vital Signs/I&O Vital Signs Date Time Temp Pulse Resp B/P (MAP) Pulse Ox O2 Delivery O2 Flow Rate FiO2 01/09/21 04:40 98.1 55 18 146/81 (102) 99 Room Air I&O- Last 24 Hours up to 6 AM 01/09/21 06:00 Intake Total 5600 ml Output Total 3455 ml Balance 2145 ml Laboratory Data 24H LABS Laboratory Tests 2 01/08/21 20:21: Nucleated Red Blood Cells % (auto) 0.0, Total Bilirubin 7.8H, Direct Bilirubin 6.2H, Aspartate Amino Transf (AST/SGOT) 175H, Alanine Aminotransferase (ALT/SGPT) 607H, Alkaline Phosphatase 139H, Total Protein 6.6, Albumin 3.1L, Albumin/Globulin Ratio 0.9 01/09/21 05:38: Nucleated Red Blood Cells % (auto) 0.0, Total Bilirubin 3.7#H, Direct Bilirubin 2.4H, Aspartate Amino Transf (AST/SGOT) 131H, Alanine Aminotransferase (ALT/SGPT) 461H, Alkaline Phosphatase 113, Total Protein 5.7L, Albumin 2.6L, Albumin/Globulin Ratio 0.8 CBC/BMP Laboratory Tests 01/08/21 20:21 01/09/21 05:38 CONRAD ANDRADE MD Jan 09, 2021 11:13
[2021-01-09 13:47] LABS: BASO # 0.1 10^3/uL (0.0-0.2); BASO % 0.5 % (0.0-1.0); EOS # 0.1 10^3/uL (0.0-0.5); EOS % 0.9 % (0.0-3.0); HEMATOCRIT 41.2 % (42.0-52.0); HEMOGLOBIN 13.8 g/dl (13.5-17.5); LYMPH # 2.3 10^3/uL (1.5-5.0); LYMPH % 22.2 % (24.0-44.0); MEAN CORPUSCULAR HEMOGLOBIN 31.7 pg (27.0-33.0); MEAN CORPUSCULAR HGB CONC 33.5 g/dl (32.0-36.5); MEAN CORPUSCULAR VOLUME 94.5 fl (80.0-96.0); MONO # 0.9 10^3/uL (0.0-0.8); MONO % 8.6 % (2.0-8.0); NEUTROPHILS # 6.9 10^3/uL (1.5-8.5); NEUTROPHILS % 67.4 % (36.0-66.0); PLATELET COUNT, AUTOMATED 273 10^3/uL (150-450); RED BLOOD COUNT 4.36 10^6/uL (4.30-6.10); WHITE BLOOD COUNT 10.2 10^3/uL (4.0-10.0)
--- NOTE | 2021-01-09 13:59 | CR ---
CONSULTATION DATE: 01/09/2021 REASON FOR CONSULTATION: Cholelithiasis. HISTORY OF PRESENT ILLNESS: Patient is a 45-year-old male who after having a protein shake on the morning of January 05 developed right upper quadrant pain. Over the next 48 hours, the pain got progressively worse until it was 10/10, and he was also having nausea and bloody emesis associated with that. He came into the hospital here on the evening of January 07, found to have what appeared to choledocholithiasis. He was kept overnight. Labs continued to remain high. Dr. Stockton then took him for an endoscopic retrograde cholangiopancreatography (ERCP) yesterday and found multiple stones within the bile duct as well as the gallbladder full of stones. Today his liver enzymes are improving, however, still elevated. Pain is still a 3/10. He denies any more nausea, vomiting, fever, or chills since he has been in the hospital. He has had a history of an abdominal gastric sleeve surgery in the past, done laparoscopically. No other abdominal surgeries. No other complaints at this time. MEDICAL HISTORY: Obesity. SURGICAL HISTORY: Gastric bypass in 2011. SOCIAL HISTORY: Smokes two to three cigars a day. Denies drug or alcohol abuse. FAMILY HISTORY: Noncontributory. ALLERGIES: None. MEDICATIONS: Please see med rec. REVIEW OF SYSTEMS: Pertinent positives and negatives as stated in history of present illness. PHYSICAL EXAMINATION: GENERAL: Alert and oriented (A and O) times three in no acute distress. VITAL SIGNS: Temperature 98.1, pulse 55, respirations 18, blood pressure 146/81, pulse oximetry 99% on room air. HEENT: Pupils equally round and reactive to light and accommodation. HEART: S1, S2, regular rate and rhythm. LUNGS: Clear to auscultation bilaterally. ABDOMEN: Soft, slight tenderness to palpation in right upper quadrant only with no guarding or rigidity. EXTREMITIES: No clubbing, cyanosis, or edema. LABORATORY DATA: White count 9.6, hemoglobin 13.5, platelets 248. Total bilirubin 3.7, down from 7.8, direct bilirubin 2.4, down from 6.2. AST 131, down from 175, ALT 461, down from 607, and alkaline phosphatase 113, down from 139. IMAGING DATA: Gallbladder ultrasound did demonstrate sludge and layering stones along with a prominent common bile duct at 10.8 mm. ASSESSMENT AND PLAN: Patient, again, is a 45-year-old male with a history of recent choledocholithiasis, causing obstructive jaundice. He underwent ERCP yesterday with DR. Stockton, who was able to remove a large volume of stones from the common bile duct itself. Labs are improving today as well as his pain. Recommendation is to proceed with cholecystectomy prior to discharge from the hospital. I discussed the procedure with him briefly this morning. We will plan to discuss it with him in detail again tomorrow morning as well as obtain consent, and he is placed on the operating room schedule for tomorrow afternoon. All of his questions are answered. He agrees with the plan. As long as he continues to improve we will plan for surgery tomorrow.
[2021-01-09 14:00] VITALS: BP 144/78
[2021-01-09 14:14] LABS: ALBUMIN 2.7 GM/DL (3.2-5.2); ALT/SGPT 439 U/L (12-78); BILIRUBIN,TOTAL 2.8 MG/DL (0.2-1.0); BLOOD UREA NITROGEN 6 MG/DL (7-18); CALCIUM LEVEL 8.5 MG/DL (8.5-10.1); CARBON DIOXIDE LEVEL 31 MEQ/L (21-32); CHLORIDE LEVEL 110 MEQ/L (98-107); CREATININE FOR GFR 1.33 MG/DL (0.70-1.30); GLOMERULAR FILTRATION RATE > 60.0 (>60); GLUCOSE, FASTING 90 MG/DL (70-100); SODIUM LEVEL 146 MEQ/L (136-145); TOTAL PROTEIN 5.9 GM/DL (6.4-8.2)
[2021-01-09] MEDS ORDERED: MOM 30ML SUSPENSION UDC PO PRN (14:15)
[2021-01-09] MEDS ORDERED: SENOKOT S TAB PO PRN (14:15)
[2021-01-09] MEDS ORDERED: PERCOCET 5MG/325MG TAB PO ONE (15:00)
[2021-01-09 16:09] LABS: ANTI-MITOCHONDRIAL ANTIBODY <20.0 Units (0.0-20.0); ANTI-SMOOTH MUSCLE ANTIBODY 6 Units (0-19)
[2021-01-09 22:00] VITALS: BP 146/82
[2021-01-10] MEDS: PIPERACILLIN/TAZOBACTAM SOD 3.375 GM in D5W MINI-BAG PLUS 50 ML IV SCH ×4 (00:53→18:42)
[2021-01-10] MEDS: LR 1,000 ML IV SCH ×6 (03:41→20:39)
[2021-01-10 06:00] VITALS: BP 154/85
--- NOTE | 2021-01-10 07:29 | IPNPDOC ---
Text Note Date of Service The patient was seen on 01/10/21. NOTE No acute events overnight. His pain was improving yesterday until he had a BM and then it seemed to get worse again. No nausea, emesis, or fevers. VSSAF NAD abd - soft, TTP appropriate labs - pending A) 45y/o male s/p ercp for choledocholithiasis. P) NPO OR for RA ulices today no changes to H+P consent is signed and on chart. Angel Cortez DO VS,Massimo, I+O VS, Massimo, I+O Laboratory Tests 01/09/21 13:26 Vital Signs Date Time Temp Pulse Resp B/P (MAP) Pulse Ox O2 Delivery O2 Flow Rate FiO2 01/10/21 06:00 97.7 55 16 154/85 (108) 96 Room Air I&O- Last 24 Hours up to 6 AM 01/10/21 06:00 Intake Total 3080 ml Output Total 3400 ml Balance -320 ml VANCE CORTEZ DO Jan 10, 2021 07:29
[2021-01-10 07:43] LABS: BASO # 0.1 10^3/uL (0.0-0.2); BASO % 0.6 % (0.0-1.0); EOS # 0.3 10^3/uL (0.0-0.5); EOS % 2.7 % (0.0-3.0); HEMOGLOBIN 13.9 g/dl (13.5-17.5); LYMPH # 2.1 10^3/uL (1.5-5.0); LYMPH % 21.6 % (24.0-44.0); MEAN CORPUSCULAR HEMOGLOBIN 31.1 pg (27.0-33.0); MEAN CORPUSCULAR HGB CONC 33.1 g/dl (32.0-36.5); MONO # 0.8 10^3/uL (0.0-0.8); NEUTROPHILS # 6.5 10^3/uL (1.5-8.5); NEUTROPHILS % 66.8 % (36.0-66.0); PLATELET COUNT, AUTOMATED 261 10^3/uL (150-450); RED BLOOD COUNT 4.47 10^6/uL (4.30-6.10); WHITE BLOOD COUNT 9.7 10^3/uL (4.0-10.0)
[2021-01-10 07:53] LABS: INR 1.04
[2021-01-10 08:16] LABS: ALBUMIN 2.9 GM/DL (3.2-5.2); ALT/SGPT 379 U/L (12-78); BILIRUBIN,TOTAL 2.3 MG/DL (0.2-1.0); BLOOD UREA NITROGEN 6 MG/DL (7-18); CALCIUM LEVEL 8.8 MG/DL (8.5-10.1); CARBON DIOXIDE LEVEL 30 MEQ/L (21-32); CHLORIDE LEVEL 107 MEQ/L (98-107); CREATININE FOR GFR 1.34 MG/DL (0.70-1.30); GLOMERULAR FILTRATION RATE > 60.0 (>60); GLUCOSE, FASTING 87 MG/DL (70-100); POTASSIUM SERUM 4.2 MEQ/L (3.5-5.1); SODIUM LEVEL 142 MEQ/L (136-145); TOTAL PROTEIN 6.2 GM/DL (6.4-8.2)
[2021-01-10] MEDS ORDERED: KETOROLAC 60MG 2ML VIAL As Ordered ONE (13:42)
[2021-01-10] MEDS ORDERED: MIDAZOLAM INJ 2MG/2ML VIAL (J2250 PER 1MG) As Ordered ONE (13:43)
[2021-01-10] MEDS ORDERED: fentaNYL 100 MCG/2 ML INJECTION (J3010) As Ordered ONE ×2 (13:43→23:44)
[2021-01-10] MEDS ORDERED: propofoL 200 MG/20 ML VIAL As Ordered ONE ×2 (13:46→22:56)
[2021-01-10] MEDS ORDERED: ROCURONIUM BROMIDE 50 MG/5 ML VIAL As Ordered ONE ×2 (13:46→23:22)
[2021-01-10] MEDS ORDERED: dexameTHASONE 4 MG/ML 1ML VIAL (J1100 PER 1MG) As Ordered ONE (13:46)
[2021-01-10] MEDS ORDERED: LIDOCAINE 2% 100MG/5ML SDV (FOR ANES.) As Ordered ONE ×2 (13:46→13:54)
[2021-01-10] MEDS ORDERED: ONDANSETRON 4MG/2ML VIAL As Ordered ONE (13:46)
[2021-01-10] MEDS ORDERED: SUGAMMADEX SODIUM 500 MG/5 ML VIAL (BRIDION) As Ordered ONE (13:47)
[2021-01-10 14:00] VITALS: BP 142/82
--- NOTE | 2021-01-10 16:41 | IPN ---
PROGRESS NOTE DATE: 01/10/2021 SUBJECTIVE: Patient denies any pain. Rates his discomfort as a 3/10, does not want any pain medications currently. No nausea or vomiting. Was tolerating his liquid diet yesterday. Nothing by mouth for laparoscopic cholecystectomy today. Afebrile. No chills this morning. No shortness of breath. PHYSICAL EXAMINATION: VITAL SIGNS: Temperature 97.7, pulse 55, respiratory rate 16, blood pressure 154/85, 96% on room air. GENERAL: Awake, alert, oriented to person, place and time, answering questions appropriately. LUNGS: Clear to auscultation. No wheezing, rales or rhonchi. HEART: S1, S2. Sinus rhythm. ABDOMEN: Soft, slightly tender epigastric and right upper quadrant. No rebound or guarding. EXTREMITIES: No cyanosis, clubbing or pitting edema. LABORATORY DATA/IMAGING STUDIES: Have been reviewed. ASSESSMENT: This is a 45-year-old male with history of gastric bypass, gastric sleeve, obesity, body mass index (BMI) of 36, admitted for choledocholithiasis with obstructive jaundice status post endoscopic retrograde cholangiopancreatography (ERCP) with episodes of hematemesis, possible gastritis. IMPRESSION: 1. Choledocholithiasis with obstructive jaundice, resolved, status post endoscopic retrograde cholangiopancreatography (ERCP). 2. Cholelithiasis. 3. Gastritis with coffee-ground emesis. 4. Headache, resolved. 5. Fatty liver. 6. Obesity, body mass index (BMI) of 36.4. 7. Acute renal failure, awaiting patient's prior labs from his primary care physician to see if this is an acute kidney injury. PLAN: Patient is on intravenous (IV) fluids, nothing by mouth status for laparoscopic cholecystectomy prior to discharge due to increased risk for choledocholithiasis. Compression stockings. Percocet as needed for pain. Morphine for breakthrough. Currently on Zosyn.
[2021-01-10 21:16] VITALS: BP 138/70
[2021-01-10] MEDS ORDERED: BUPIVACAINE/EPIN 0.25% 30 ML VIAL As Ordered ONE (23:22)
[2021-01-11] VITALS (12 sets, daily range): BP systolic 105–168; BP diastolic 69–102
[2021-01-11] MEDS ORDERED: ACETAMINOPHEN 1000MG 100ML IV BTL (OFIRMEV) (J0131 PER 10MG) As Ordered ONE (00:41)
[2021-01-11] MEDS ORDERED: propofoL 200 MG/20 ML VIAL As Ordered ONE (00:59)
[2021-01-11] MEDS ORDERED: MORPHINE 4 MG/ML 1ML VIAL/SYRINGE (J2270) IV PRN (01:30)
[2021-01-11] MEDS ORDERED: ACETAMINOPHEN TAB 650MG DOSE (2X325MG) PO PRN (01:30)
[2021-01-11] MEDS ORDERED: NS 0.45% 1,000 ML IV SCH (01:30)
[2021-01-11] MEDS: PIPERACILLIN/TAZOBACTAM SOD 3.375 GM in D5W MINI-BAG PLUS 50 ML IV SCH ×5 (01:45→23:51)
[2021-01-11] MEDS: PERCOCET 5MG/325MG TAB PO PRN ×2 (02:11→23:51)
[2021-01-11 05:29] LABS: BASO % 0.2 % (0.0-1.0); HEMATOCRIT 44.2 % (42.0-52.0); HEMOGLOBIN 14.9 g/dl (13.5-17.5); LYMPH # 0.5 10^3/uL (1.5-5.0); LYMPH % 4.9 % (24.0-44.0); MEAN CORPUSCULAR HEMOGLOBIN 31.5 pg (27.0-33.0); MEAN CORPUSCULAR HGB CONC 33.7 g/dl (32.0-36.5); MEAN CORPUSCULAR VOLUME 93.4 fl (80.0-96.0); MONO # 0.2 10^3/uL (0.0-0.8); MONO % 2.2 % (2.0-8.0); NEUTROPHILS # 9.8 10^3/uL (1.5-8.5); NEUTROPHILS % 92.2 % (36.0-66.0); PLATELET COUNT, AUTOMATED 304 10^3/uL (150-450); RED BLOOD COUNT 4.73 10^6/uL (4.30-6.10); WHITE BLOOD COUNT 10.6 10^3/uL (4.0-10.0)
[2021-01-11 06:01] LABS: ALBUMIN 3.3 GM/DL (3.2-5.2); ALT/SGPT 328 U/L (12-78); BILIRUBIN,TOTAL 2.2 MG/DL (0.2-1.0); BLOOD UREA NITROGEN 8 MG/DL (7-18); CALCIUM LEVEL 9.2 MG/DL (8.5-10.1); CARBON DIOXIDE LEVEL 29 MEQ/L (21-32); CHLORIDE LEVEL 103 MEQ/L (98-107); CREATININE FOR GFR 1.51 MG/DL (0.70-1.30); GLOMERULAR FILTRATION RATE > 60.0 (>60); GLUCOSE, FASTING 103 MG/DL (70-100); POTASSIUM SERUM 4.6 MEQ/L (3.5-5.1); SODIUM LEVEL 138 MEQ/L (136-145); TOTAL PROTEIN 7.1 GM/DL (6.4-8.2)
[2021-01-11] MEDS ORDERED: NS 1,000 ML IV ONE (07:20)
--- NOTE | 2021-01-11 08:13 | IPNPDOC ---
Text Note Date of Service The patient was seen on 01/11/21. NOTE No acute events overnight. He had his chlolecystectomy last evening with Dr. Rangel. He had no problems overnight and his pain is well controlled. He has already been out of bed walking around and has had a BM and urinated. VSSAF NAD abd - soft, TTP appropriate, dressings c/d/i labs - below A) 45y/o male POD#1 s/p cholecystectomy for symptomatic cholelithiasis and re cent choledocholithiasis elevated creatinine P) reg diet IS ambulate monitor renal function fluid bolus per hospitalist PO pain control plan on d/c home this weekend. Angel Cortez DO VS,Massimo, I+O VS, Massimo, I+O Laboratory Tests 01/11/21 05:15 Vital Signs Date Time Temp Pulse Resp B/P (MAP) Pulse Ox O2 Delivery O2 Flow Rate FiO2 01/11/21 07:00 98.7 75 24 142/70 (94) 94 Room Air I&O- Last 24 Hours up to 6 AM 01/11/21 06:00 Intake Total 3500 ml Output Total 1660 ml Balance 1840 ml VANCE CORTEZ DO Jan 11, 2021 08:13
--- NOTE | 2021-01-11 15:08 | IPNPDOC ---
Date Seen The patient was seen on 01/11/21. Progress Note SUBJECTIVE: pod#1 s/p lap ulices. denies any pain 2/10 scale while supine. no n/v/f/c. no sob/cp/pressure. despite uncontrolled htn, denies h/a, changes in vision. PHYSICAL EXAMINATION: VITAL SIGNS: see below GENERAL: asleep but arousable. no distress LUNGS: Clear to auscultation. No wheezing, rales or rhonchi. HEART: S1, S2. Sinus rhythm. ABDOMEN: Soft, lap incisions are clean dry w/o erythema or discharge +bs x 4quadrants no rebound or guarding EXTREMITIES: No cyanosis, clubbing or pitting edema. LABORATORY DATA/IMAGING STUDIES: Have been reviewed. ASSESSMENT: This is a 45-year-old male with history of gastric bypass, gastric sleeve, obesity, body mass index (BMI) of 36, admitted for choledocholithiasis with obstructive jaundice status post endoscopic retrograde cholangiopancreatography (ERCP) with episodes of hematemesis, possible gastritis. IMPRESSION: 1. Choledocholithiasis with obstructive jaundice, resolved, status post endoscopic retrograde cholangiopancreatography (ERCP). 2. Cholelithiasis. 3. Gastritis with coffee-ground emesis. 4. Headache, resolved. 5. Fatty liver. 6. Obesity, body mass index (BMI) of 36.4. 7. renal failure-awaiting pcp basline creatinine 8. uncontrolled HTN. PLAN: postop mgt per surgery. advance diet as tolerated. prn pain meds ivf . awaiting previous labs to see if pt has ckd3. avoid nsaids, cristine inh/arb. norvasc for htn. if more bp meds needed, hydralazine and nitrates. ppi. prn pain meds.early ambulation disposition: 1-2 days. dc in am if ok w surgery. VS, I&O, 24H, Massimo Vital Signs/I&O Vital Signs Date Time Temp Pulse Resp B/P (MAP) Pulse Ox O2 Delivery O2 Flow Rate FiO2 01/11/21 10:00 99.0 71 17 142/94 (110) 94 Room Air I&O- Last 24 Hours up to 6 AM 01/11/21 05:59 Intake Total 3550 ml Output Total 1660 ml Balance 1890 ml Laboratory Data 24H LABS Laboratory Tests 2 10/15/21 05:15: Immature Granulocyte % (Auto) 0.5, Neutrophils (%) (Auto) 92.2H, Lymphocytes (%) (Auto) 4.9L, Monocytes (%) (Auto) 2.2, Eosinophils (%) (Auto) 0.0, Basophils (%) (Auto) 0.2, Neutrophils # (Auto) 9.8H, Lymphocytes # (Auto) 0.5L, Monocytes # (Auto) 0.2, Eosinophils # (Auto) 0.0, Basophils # (Auto) 0.0, Nucleated Red Blood Cells % (auto) 0.0, Anion Gap 6L, Glomerular Filtration Rate > 60.0, Calcium Level 9.2, Total Bilirubin 2.2H, Aspartate Amino Transf (AST/SGOT) 57H, Alanine Aminotransferase (ALT/SGPT) 328H, Alkaline Phosphatase 134H, Total Protein 7.1, Albumin 3.3, Albumin/Globulin Ratio 0.9 CBC/BMP Laboratory Tests 01/11/21 05:15 CONRAD ANDRADE MD Jan 11, 2021 15:08
[2021-01-11] MEDS ORDERED: HYDROMORPHONE HCL 0.5 MG/ 0.5 ML SYRINGE (J1170 PER 1) IV ONE (15:30)
[2021-01-12] MEDS: PIPERACILLIN/TAZOBACTAM SOD 3.375 GM in D5W MINI-BAG PLUS 50 ML IV SCH (05:34)
[2021-01-12 06:00] VITALS: BP 129/66
[2021-01-12 07:25] LABS: BASO % 0.5 % (0.0-1.0); EOS # 0.2 10^3/uL (0.0-0.5); EOS % 1.7 % (0.0-3.0); HEMATOCRIT 38.5 % (42.0-52.0); LYMPH # 2.6 10^3/uL (1.5-5.0); LYMPH % 29.5 % (24.0-44.0); MEAN CORPUSCULAR HEMOGLOBIN 31.5 pg (27.0-33.0); MEAN CORPUSCULAR HGB CONC 33.5 g/dl (32.0-36.5); MEAN CORPUSCULAR VOLUME 94.1 fl (80.0-96.0); MONO # 0.7 10^3/uL (0.0-0.8); NEUTROPHILS # 5.3 10^3/uL (1.5-8.5); NEUTROPHILS % 59.8 % (36.0-66.0); PLATELET COUNT, AUTOMATED 292 10^3/uL (150-450); RED BLOOD COUNT 4.09 10^6/uL (4.30-6.10); WHITE BLOOD COUNT 8.8 10^3/uL (4.0-10.0)
[2021-01-12 07:32] LABS: HEMOGLOBIN 12.9 g/dl (13.5-17.5)
[2021-01-12 07:50] LABS: ALBUMIN 2.8 GM/DL (3.2-5.2); ALT/SGPT 228 U/L (12-78); BILIRUBIN,TOTAL 1.3 MG/DL (0.2-1.0); BLOOD UREA NITROGEN 13 MG/DL (7-18); CALCIUM LEVEL 7.9 MG/DL (8.5-10.1); CARBON DIOXIDE LEVEL 30 MEQ/L (21-32); CHLORIDE LEVEL 106 MEQ/L (98-107); CREATININE FOR GFR 1.49 MG/DL (0.70-1.30); GLOMERULAR FILTRATION RATE > 60.0 (>60); GLUCOSE, FASTING 96 MG/DL (70-100); POTASSIUM SERUM 3.8 MEQ/L (3.5-5.1); SODIUM LEVEL 140 MEQ/L (136-145); TOTAL PROTEIN 6.1 GM/DL (6.4-8.2)
[2021-01-12] MEDS ORDERED: FLAG500T PO (08:16)
[2021-01-12] MEDS ORDERED: BACITAB PO (08:16)
[2021-01-12] MEDS ORDERED: SENO8.6T10 PO (08:16)
[2021-01-12] MEDS ORDERED: CIPR-249 PO (08:16)
[2021-01-12] MEDS ORDERED: PERC7.5T11 PO (08:16)
[2021-01-12] MEDS: PERCOCET 5MG/325MG TAB PO PRN (10:13)
--- NOTE | 2021-01-12 15:42 | RO ---
OPERATIVE NOTE DATE OF OPERATION: 01/10/2021 Date of procedure is January 10 into December. PREOPERATIVE DIAGNOSIS: Cholelithiasis with recent obstructive jaundice from choledocholithiasis. POSTOPERATIVE DIAGNOSIS: Cholelithiasis with recent choledocholithiasis and small periumbilical hernia. PROCEDURE PERFORMED: Robotic-assisted laparoscopic cholecystectomy with repair of small periumbilical hernia. SURGEON: Abhishek Rangel MD SPRING FORMER MACHINE: None ANESTHESIA: General. INDICATIONS FOR THE PROCEDURE: The patient is a 45-year-old man who had presented to the hospital with upper abdominal pain with jaundice. He was found to have choledocholithiasis with obstructive jaundice and underwent an ERCP. His liver function tests have been improving and he is now for a laparoscopic robotic-assisted cholecystectomy for his remaining gallstones. OPERATIVE PROCEDURE: The patient was brought to the operating room and placed on the table in a supine position. He was placed under general endotracheal anesthesia. The patient's abdomen was prepped and draped in a sterile fashion. 1/4% Marcaine was infiltrated at each of the trocar sites. A short transverse left upper quadrant incision was made. A Veress needle was inserted but a satisfactory hanging drop test could not be achieved. I then made a short longitudinal supraumbilical incision and the Veress needle was inserted without difficulty. A positive hanging drop test was obtained and the abdomen was insufflated with carbon dioxide gas. When the abdomen was fully inflated, an 8 mm robotic port was placed through the supraumbilical site without difficulty. Inspection showed no evidence of penetration of the peritoneum in the left upper quadrant. There was some insufflation of the preperitoneal tissues in this area. An 8 mm port was placed in the left upper quadrant. Two additional 8 mm ports were then placed in the right lower quadrant. Further inspection showed a somewhat darker than normal appearing liver. The gallbladder was noted and appeared inflamed. Visualized portions of the small and large bowel appeared normal. The patient was tilted to a roughly 15 degree reverse Trendelenburg position and rolled slightly to the left. The patient cart of the da Milton XI robot were brought into position and the endoscope arm was docked to the supraumbilical port. Targeting took place in the right upper quadrant. The additional arms were then docked. A hook cautery, fenestrated bipolar, and grasping retractor were then inserted. I moved to the control console to proceed with the operation. The gallbladder was identified. There appeared to be some encasing omentum that was inflamed. The gallbladder was grasped and elevated and the inflamed omentum was dissected away from the gallbladder using the hook cautery. Dissection then proceeded in the region of the gallbladder neck. Avascular structures were divided using the hook cautery. The cholecystic artery was identified and this was doubly clipped with hemoclips and divided. The cystic duct was then clearly identified and dissected free and was also doubly clipped with hemoclips and divided. The gallbladder was then dissected free from the gallbladder bed using cautery. The gallbladder was not perforated. The gallbladder was placed in an Endopouch. The right upper quadrant was then inspected. There was no evidence of bleeding or bile leak. The robotic instruments were then removed and the robot was undocked and withdrawn. The patient was returned to a flat position. The Endopouch was grasped through the supraumbilical site. The abdomen was deflated and the trocars were all removed. The gallbladder was recovered through the supraumbilical site which required extending the incision slightly. In the course of extending the incision, a small periumbilical hernia was identified with a protrusion of some fibrofatty tissue. The fibrofatty tissue was excised and the closure of the hernia was incorporated into the closure of the fascia with a running suture of 2-0 PDS. The skin incisions were then all closed with buried 4-0 Vicryl and Steri-Strips. Light dressings were applied. The patient tolerated the procedure well without apparent complication. He was awakened in the operating room, extubated and moved to the recovery room in stable condition. LEONARD
--- NOTE | 2021-01-12 23:26 | IPN ---
PROGRESS NOTE DATE: 01/12/2021 HISTORY: The patient is a 45-year-old man who had presented on the with worsening abdominal pain and emesis. He was found to have quite elevated liver function tests. He was found to have cholelithiasis and choledocholithiasis. He underwent an ERCP on the . He had a laparoscopic robotic assisted cholecystectomy in the late night of the running into the [employer] of the 11 of January. His diet was advanced back to regular. He has tolerated this well. He is voiding and has had bowel movements. Vital signs show that he has been afebrile over the past 24 hours. His pulse has ranged from 61 to 94. Blood pressure is good with normal room air oxygen saturations. INTAKE AND OUTPUT: Yesterday he had 3,100 in with 1,100 recorded out. OBJECTIVE: PHYSICAL EXAMINATION: GENERAL APPEARANCE: The patient is sitting up in a chair at the bedside when I entered. He is alert and comfortable and awaiting discharge. HEART: Unremarkable. LUNGS: Unremarkable. ABDOMEN: There is a slight separation of the skin at the top of the umbilicus, but this is clean without any evidence of infection. LABORATORY STUDIES: Today white count of 9 with a hemoglobin of 13, hematocrit 38, platelet count of 292,000 and a normal differential count. His chemistry profile shows normal electrolytes with a total bilirubin down to 1.3 from 2.2 yesterday. AST 55, ALT 228 and an alkaline phosphatase of 108. IMPRESSION: The patient is doing very well following his ERCP and cholecystectomy for cholelithiasis and choledocholithiasis with obstructive jaundice. PLAN: The patient can be discharged home today. He lives in [place] and plans on spending the weekend in a hotel. He was counseled regarding local wound care. He can take a diet as tolerated. He can shower as desired. He should avoid any strenuous physical activity for approximately 2 weeks. He can follow up with Dr. Cortez in the office if he is able to do this before he leaves town for [place], but otherwise he can check in with any physician in the next 10 days to 2 weeks in [place]. LEONARD
--- NOTE | 2021-01-14 09:52 | DSES ---
DISCHARGE SUMMARY DATE OF ADMISSION: 01/07/2021 DATE OF DISCHARGE: 01/12/2021 CONSULTANTS: 1. Erwin Stockton MD, flow coordinator. 2. Raad Cortez DO, general surgeon. PROCEDURES DURING THIS ADMISSION: 1. ERCP on 01/08/2021. 2. Laparoscopic cholecystectomy on 01/10/2021. PRIMARY DISCHARGE DIAGNOSES: 1. Choledocholithiasis. 2. Gastritis. 3. Cholelithiasis. 4. Obesity - BMI of 36.4. 5. Chronic kidney disease stage 3. 6. Fatty liver. 7. Uncontrolled hypertension. 8. Coffee ground emesis. DISCHARGE MEDICATIONS: 1. Ciprofloxacin 500 twice a day. 2. Flagyl 500 three times a day. 3. Percocet 1 tablet three times a day as needed. 4. Senokot 1 tablet twice a day. 5. Bacid 1 tablet with meals. 6. Bacid 1 tablet at bedtime. DISCHARGE INSTRUCTIONS: 1. Follow up with primary care physician within 5 days. 2. Follow up with Dr. Cortez within 1 week. 3. Activity and shower privileges. 4. Post-op surgical incision care per surgery. 5. Patient is not to carry more than 15 pounds. 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 Underwent ERCP with sweeping. No stent was placed due to a significant amount of cholelithiasis in the gallbladder with recommendation for a laparoscopic cholecystectomy prior to hospital discharge. Patient was initially started on Zosyn, kept on I.V. fluids, antiemetics and pain medications with intravenous morphine. Patient underwent laparoscopic cholecystectomy on 01/10/2021. Diet was advanced from clear to a regular diet. He had episodes of headache which was treated with I.V. Reglan and Fioricet. Patient was noted to have acute kidney injury with admitting creatinine of 1.2, current creatinine 1.4 now most likely chronic kidney disease stage 3, given intravenous fluids with adequate urine output. PHYSICAL EXAM ON DISCHARGE: Vital signs: Temperature 96.5, pulse 61, respiratory rate 16, blood pressure 129/66, 97% on room air. General: Awake, alert, oriented. HEENT: No jaundice, icterus, cyanosis or pallor. Moist mucous membranes. Neck: No JVD, no thyromegaly. Lungs: Clear to auscultation without wheezes, rhonchi or rales. Chest: Patient has clean surgical scars from laparoscopic cholecystectomy in the umbilicus, 2 in the right lower quadrant, 1 in the left upper quadrant, clean, dry without erythema, induration, crepitus. LABORATORY DATA/IMAGING STUDIES/MICROBIOLOGY: All have been reviewed. Please see the chart. Time spent on discharge: Thirty minutes
== END 2021-01-12 12:31 | disposition home or self-care (01) | DRG 263 ==
LOC: M ED 17:51 → M ED INP 21:24 → M MSPAV 01-08 00:44
PROVIDERS: ADMIT Internal Medicine; ATTEND General Practice
PROC: 0FC98ZZ Extirpation of Matter from Common Bile Duct, Via Natural or Artificial Opening Endoscopic (ICD-10-PCS; principal; 2021-01-08 16:00)
PROC: 0FT44ZZ Resection of Gallbladder, Percutaneous Endoscopic Approach (ICD-10-PCS; 2021-01-10)
PROC: 8E0W4CZ Robotic Assisted Procedure of Trunk Region, Percutaneous Endoscopic Approach (ICD-10-PCS; 2021-01-10)
PROC: 0WBF4ZZ Excision of Abdominal Wall, Percutaneous Endoscopic Approach (ICD-10-PCS; 2021-01-10)
DX: K80.71 Calculus of gallbladder and bile duct without cholecystitis with obstruction (principal); K92.0 Hematemesis; N17.9 Acute kidney failure, unspecified; K76.0 Fatty (change of) liver, not elsewhere classified; N18.30 Chronic kidney disease, stage 3 unspecified; R17 Unspecified jaundice; E66.9 Obesity, unspecified; Z68.36 Body mass index [BMI] 36.0-36.9, adult; Z98.84 Bariatric surgery status; R74.01 Elevation of levels of liver transaminase levels; Z20.822 Contact with and (suspected) exposure to COVID-19; I12.9 Hypertensive chronic kidney disease with stage 1 through stage 4 chronic kidney disease, or unspecified chronic kidney disease; K29.70 Gastritis, unspecified, without bleeding; K80.50 Calculus of bile duct without cholangitis or cholecystitis without obstruction